=== PATIENT | female | born 1985 | race Caucasian/White ===

== ENCOUNTER 2018-03-03 10:54 | Emergency (ER) | payer BC ==
[2018-03-03 11:19] VITALS: BP 105/53
--- NOTE | 2018-03-03 12:34 | UC ---
Skin Complaint HPI - HPI Summary HPI Summary: 32 yo WF c/o sore throat since yesterday with a macular rash on her back noted a few days.Denies f/c/cough/sputum. Thinks she "may have had contact with a chelsey derby partner who was dx'd with mono recently" - History of Current Complaint Chief Complaint: UCRespiratory Time Seen by Provider: 03/03/18 12:15 Stated Complaint: SORE THROAT, EAR PAIN, RASH Hx Obtained From: Patient Hx From Patient Unobtainable Due To: Other Hx Last Menstrual Period: depo, no menses ?: No Skin Exposure Onset/Duration: Days Ago Onset Severity: Moderate Current Severity: Moderate Pain Intensity: 6 - Allergy/Home Medications Allergies/Adverse Reactions: Allergies Allergy/AdvReac Type Severity Reaction Status Date / Time No Known Allergies Allergy Verified 03/03/18 11:19 Home Medications: Home Medications Acetaminophen [Pain Reliever] 500 mg PO 03/03/18 [History] Ibuprofen 600 mg PO 03/03/18 [History] Review of Systems Constitutional: Negative Skin: Negative Eyes: Negative ENT: Negative Respiratory: Negative Cardiovascular: Negative Gastrointestinal: Negative Genitourinary: Negative Motor: Negative Neurovascular: Negative Musculoskeletal: Negative Neurological: Negative Psychological: Negative All Other Systems Reviewed And Are Negative: Yes PMH/Surg Hx/FS Hx/Imm Hx - Surgical History Surgical History: None - Family History Known Family History: Positive: Hypertension - Social History Alcohol Use: Occasionally Substance Use Type: None Smoking Status (MU): Never Smoked Tobacco Physical Exam Triage Information Reviewed: Yes Appearance: Well-Appearing Vital Signs: Initial Vital Signs Temp 36.3 C 03/03/18 11:15 Pulse 61 03/03/18 11:15 Resp 18 03/03/18 11:15 BP 105/53 03/03/18 11:15 Pulse Ox 99 03/03/18 11:15 Eye Exam: Normal ENT: Positive: Pharyngeal erythema, TMs normal. Negative: Tonsillar swelling, Tonsillar exudate Dental Exam: Normal Neck exam: Normal Neck: Positive: 1 Respiratory Exam: Normal Cardiovascular Exam: Normal Abdominal Exam: Normal Musculoskeletal Exam: Normal Neurological Exam: Normal Psychological Exam: Normal Skin: Positive: rashes - upper back mild erythematous and pruritic macular rash in a rajesh tree pattern Course/Dx - Course Course Of Treatment: rapid strep neg - Diagnoses Provider Diagnoses: tinea versicolor. pharyngitis Discharge - Sign-Out/Discharge Documenting (check all that apply): Discharge/Admit/Transfer - Discharge Plan Condition: Stable Disposition: HOME Prescriptions: Clotrimazole/Betamethasone* [Lotrisone Cream*] 1 applic TOPICAL BID 14 Days #1 tube Patient Education Materials: Pharyngitis (ED), Tinea Versicolor (ED) Additional Instructions: Follow with a PCP for a complete blood test - Billing Disposition and Condition Condition: STABLE Disposition: HOME
== END 2018-03-03 12:32 | disposition home or self-care (01) ==
LOC: UCEAST 10:54
DX: J02.9 Acute pharyngitis, unspecified (principal); B36.0 Pityriasis versicolor
CPT/HCPCS: 87651; 99211; G0463

== ENCOUNTER → 2018-07-20 15:58 | Emergency (ER) | payer BC, OTHER ==
[2018-07-20 17:48] VITALS: BP 107/65
== END | disposition left against medical advice (07) ==
LOC: ED 15:58
DX: Z77.098 Contact with and (suspected) exposure to other hazardous, chiefly nonmedicinal, chemicals (principal); Z53.21 Procedure and treatment not carried out due to patient leaving prior to being seen by health care provider